=== PATIENT | female | born 1995 | race Caucasian/White ===

== ENCOUNTER 2016-10-01 07:02 | Emergency (ER) | payer BC ==
[~2016-10-01] VITALS: Ht 165.1 cm; Wt 45.5 kg
[2016-10-01] MEDS ORDERED: ONDANSETRON HCL 4MG/2ML VIAL IV STA (08:22)
[2016-10-01] MEDS ORDERED: FAMOTIDINE 20MG/2ML VIAL IV STA (08:22)
[2016-10-01] MEDS ORDERED: SODIUM CHLORIDE 0.9% 1,000 ML IV ONE (08:22)
[2016-10-01] MEDS ORDERED: KETOROLAC 30MG/ML VIAL IV STA (08:22)
[2016-10-01 08:49] LABS: BASOPHILS % 0.4 % (0.0-2.0); HEMATOCRIT. 43.6 % (36.0-48.0); HEMOGLOBIN. 14.8 g/dL (12.0-16.0); LYMPHOCYTES % 16.7 % (20.0-50.0); MEAN CORPUSCULAR HEMOGLOBIN 28.8 pg (28.0-32.0); MEAN CORPUSCULAR VOLUME 84.9 fL (81.0-99.0); MEAN PLATELET VOLUME 8.7 fl (7.4-10.4); MONOCYTES % 9.2 % (2.0-8.0); NEUTROPHILS % 73.7 % (40.0-76.0); PLATELET 363 x1000/uL (130-400); RED BLOOD CELL COUNT 5.14 mill/uL (4.2-5.4); RED CELL DISTRIBUTION WIDTH 15.6 % (11.6-14.6); WHITE BLOOD COUNT 6.8 x1000/uL (4.5-11.0)
[2016-10-01 08:52] LABS: CHLORIDE 101 mEq/L (98-107); INDEX HEMOLYSI 1 (1-3); INDEX ICTERIC 1 (1-4); INDEX LIPEMIC 1 (1-3); INR 1.1; PROTHROMBIN TIME 11.2 sec
[2016-10-01 08:55] LABS: CLARITY URINE HAZY (CLEAR); COLOR URINE YELLOW (YELLOW)
[2016-10-01 08:58] LABS: GLUCOSE URINE NEGATIVE (NEGATIVE); KETONES URINE 4+ (NEGATIVE); LEUKOCYTE ESTERASE URINE 1+ (NEGATIVE); NITRITE URINE NEGATIVE (NEGATIVE); OCCULT BLOOD URINE NEGATIVE (NEGATIVE); PROTEIN URINE TRACE (NEGATIVE); SPECIFIC GRAVITY URINE 1.027 (1.005-1.030)
[2016-10-01 08:59] LABS: ALANINE AMINOTRANSFERASE 18 IU/L (13-61); ALBUMIN 4.5 g/dL (3.4-5.0); ANION GAP 13; CARBON DIOXIDE 25 mEq/L (21-32); LIPASE 117 IU/L (73-393); UREA NITROGEN BLOOD 10 mg/dL (7-21); eGFR > 60 mL/min (>60)
[2016-10-01 09:01] LABS: *AMPHETAMINES SCREEN URINE NEGATIVE (NEGATIVE); *BARBITURATES SCREEN URINE NEGATIVE (NEGATIVE); *BENZODIAZEPINES SCREEN URINE NEGATIVE (NEGATIVE); *COCAINE SCREEN URINE NEGATIVE (NEGATIVE); ECSTASY MDMA SCREEN URINE NEGATIVE (NEGATIVE); METHADONE URINE SCREEN NEGATIVE (NEGATIVE); OPIATES URINE SCREEN NEGATIVE (NEGATIVE); PHENCYCLIDINE URINE SCREEN NEGATIVE (NEGATIVE)
[2016-10-01 09:15] LABS: SQUAMOUS EPITHELIAL CELL URINE 1+ /lpf (RARE/1+)
[2016-10-01 09:16] LABS: BACTERIA URINE 1+; MUCUS URINE 1+ /lpf (< = 2+)
[2016-10-01 09:17] LABS: RBC URINE 0-2 /hpf (0-2); WBC URINE 0-2 /hpf (0-2)
[2016-10-01 09:19] LABS: CANNABINOID URINE SCREEN PRESUMTIVE POSITIVE (NEGATIVE)
[2016-10-01 10:00] VITALS: BP 130/85
== END 2016-10-01 10:39 | disposition home or self-care (01) ==
LOC: ER 07:42
DX: N39.0 Urinary tract infection, site not specified (principal); F17.210 Nicotine dependence, cigarettes, uncomplicated
CPT/HCPCS: 36415; 80053; 80305; 81001; 81025; 83690; 85025; 85610; 96361; 96374; 96375; 99284; J1885; J2405; J3490; J7030

== ENCOUNTER 2021-09-01 11:11 | Emergency (ER) | payer BC, MEDICAID ==
[~2021-09-01] VITALS: Ht 165.1 cm; Wt 45.0 kg
[2021-09-01] MEDS ORDERED: DIPHENHYDRAMINE 50MG CAPSULE PO ONE (11:30)
[2021-09-01] MEDS ORDERED: FAMOTIDINE 20MG TABLET PO ONE (11:30)
[2021-09-01] MEDS ORDERED: PREDNISONE 20MG TABLET PO ONE (11:30)
[2021-09-01] MEDS ORDERED: FAMO-135 MT (14:00)
[2021-09-01] MEDS ORDERED: P20 MT (14:00)
[2021-09-01] MEDS ORDERED: EPIN0.3P3 IM (14:00)
[2021-09-01] MEDS ORDERED: DIPH25CA83 MT (14:00)
[2021-09-01 14:45] VITALS: BP 125/86
== END 2021-09-01 14:53 | disposition home or self-care (01) ==
LOC: ER 11:11
DX: T78.3XXA Angioneurotic edema, initial encounter (principal); X58.XXXA Exposure to other specified factors, initial encounter; Y93.89 Activity, other specified; Y92.89 Other specified places as the place of occurrence of the external cause
CPT/HCPCS: 99284; J7512; Q0163

== ENCOUNTER 2021-09-02 04:38 | Inpatient (IN) | payer MEDICAID ==
[~2021-09-02] VITALS: Ht 167.6 cm; Wt 44.9 kg
[~2021-09-02 04:38] MED LIST: DIPH25CA83 MT; EPIN0.3P3 IM; FAMO-135 MT; P20 MT
[2021-09-02] MEDS ORDERED: FAMOTIDINE 20MG/2ML VIAL IV ONE (05:30)
[2021-09-02] MEDS ORDERED: SODIUM CHLORIDE 0.9% 1,000 ML IV ONE (05:30)
[2021-09-02] MEDS ORDERED: DIPHENHYDRAMINE 50MG/ML VIAL IV ONE (05:30)
[2021-09-02] MEDS ORDERED: METHYLPREDNISOLONE SOD SUCC 125 MG/2 ML VIAL IV ONE (05:30)
[2021-09-02] MEDS ORDERED: KETOROLAC 15MG/ML VIAL IV ONE (08:15)
[2021-09-02] MEDS ORDERED: IPRATROPIUM/ALBUTEROL 0.5-3(2.5)MG/3ML NEB HHN PRN (09:30)
[2021-09-02] MEDS ORDERED: ONDANSETRON HCL 4MG/2ML INJ IV PRN (09:30)
[2021-09-02] MEDS ORDERED: CLONIDINE 0.1MG TABLET PO PRN (09:30)
[2021-09-02] MEDS: DIPHENHYDRAMINE 50MG/ML VIAL IV SCH ×3 (10:27→20:24)
[2021-09-02 16:00] VITALS: BP 106/68
[2021-09-02 17:00] VITALS: BP 128/72
[2021-09-02] MEDS: ACETAMINOPHEN 325MG TABLET PO PRN ×3 (17:37→22:23)
[2021-09-02 20:00] VITALS: BP 117/77
[2021-09-02 22:00] VITALS: BP 122/78
[2021-09-03] MEDS ORDERED: FAMOTIDINE 20MG/2ML VIAL IV SCH (09:00)
== END 2021-09-02 23:32 | disposition left against medical advice (07) | DRG 811 ==
LOC: ER 04:38 → 8WST 05:43 → ENRESERV 12:30
PROVIDERS: ADMIT Internal Medicine; ATTEND Internal Medicine
DX: T78.40XA Allergy, unspecified, initial encounter (principal); F32.A Depression, unspecified; R22.0 Localized swelling, mass and lump, head; Z53.21 Procedure and treatment not carried out due to patient leaving prior to being seen by health care provider; R21 Rash and other nonspecific skin eruption; Z79.899 Other long term (current) drug therapy; Z91.09 Other allergy status, other than to drugs and biological substances; Y92.89 Other specified places as the place of occurrence of the external cause
CPT/HCPCS: 93970; 99291; J1200; J1885; J2930; J3490; J7030

== ENCOUNTER 2022-02-22 02:12 | Emergency (ER) | payer MEDICAID ==
[~2022-02-22] VITALS: Ht 165.1 cm; Wt 51.2 kg
[2022-02-22] MEDS ORDERED: KETOROLAC 30MG/ML VIAL IV STA (04:59)
[2022-02-22] MEDS ORDERED: SODIUM CHLORIDE 0.9% 500 ML IV ONE (05:00)
[2022-02-22 05:23] LABS: BASOPHILS % 0.9 % (0.0-2.0); EOSINOPHILS % 2.3 % (0.0-5.0); HEMATOCRIT. 36.8 % (36.0-48.0); HEMOGLOBIN. 11.9 g/dL (12.0-16.0); LYMPHOCYTES % 37.7 % (20.0-50.0); MEAN CORPUSCULAR HEMOGLOBIN 26.5 pg (28.0-32.0); MEAN PLATELET VOLUME 8.2 fl (7.4-10.4); MONOCYTES % 14.9 % (2.0-8.0); NEUTROPHILS % 44.2 % (40.0-76.0); PLATELET 426 x1000/uL (130-400); RED BLOOD CELL COUNT 4.49 mill/uL (4.2-5.4); RED CELL DISTRIBUTION WIDTH 18.2 % (11.6-14.6)
[2022-02-22 05:29] LABS: CHLORIDE 108 mEq/L (98-107)
[2022-02-22] MEDS ORDERED: ACETAMINOPHEN 500MG TABLET PO ONE (05:30)
[2022-02-22] MEDS ORDERED: AZIT250T12 MT (06:08)
[2022-02-22] MEDS ORDERED: IBUP-2029 MT (06:08)
[2022-02-22] MEDS ORDERED: KETOROLAC 15MG/ML VIAL IV ONE (06:15)
[2022-02-22 06:26] VITALS: BP 174/104
== END 2022-02-22 06:47 | disposition home or self-care (01) ==
LOC: ER 02:12
DX: R51.9 Headache, unspecified (principal); R07.89 Other chest pain; Z79.899 Other long term (current) drug therapy
CPT/HCPCS: 36415; 71045; 80053; 81025; 84484; 85025; 93005; 96361; 96374; 99285; J1885; J7030